=== PATIENT | male | born 1985 | race Caucasian/White ===

== ENCOUNTER 2021-09-04 18:25 | Emergency (ER) | payer BC, OTHER ==
--- NOTE | 2021-09-04 18:40 | NUR ---
Called no answer
--- NOTE | 2021-09-04 18:47 | NUR ---
Attempted to call again the patient at the waiting room, no answer
== END 2021-09-04 18:48 | disposition left against medical advice (07) ==
LOC: ER 18:29
DX: Z53.21 Procedure and treatment not carried out due to patient leaving prior to being seen by health care provider (principal)

== ENCOUNTER 2025-02-01 10:57 | Emergency (ER) | payer BC ==
[~2025-02-01] VITALS: Ht 167.6 cm; Wt 88.5 kg
[2025-02-01 11:16] VITALS: BP 153/91; TEMP 98.1
[2025-02-01] MEDS ORDERED: LORAZEPAM 1 MG TABLET ONE (11:52)
[2025-02-01] MEDS: LORAZEPAM 1 MG TABLET PO ONE (11:55)
[2025-02-01 12:15] VITALS: O2SAT 99
== END 2025-02-01 12:16 | disposition home or self-care (01) ==
LOC: ER 11:05
DX: F41.9 Anxiety disorder, unspecified (principal); F41.0 Panic disorder [episodic paroxysmal anxiety]